=== PATIENT | male | born 1965 | race Caucasian/White ===

== ENCOUNTER 2017-06-05 21:09 | Emergency (ER) | payer OTHER ==
[2017-06-05 21:35] VITALS: RESP 14; O2SAT 99
--- NOTE | 2017-06-05 22:14 | C.PDOC ---
History Of Present Illness 52 year old male presents to the ER with a complaint of pain to the right lower back that radiates to the right buttock and right thigh for 1.5 months that worsens with ambulation. Denies weakness, numbness, dysuria, hematuria, or incontinence. Time Seen by Provider: 06/05/17 21:33 Chief Complaint (Nursing): Hip Pain History Per: Patient History/Exam Limitations: no limitations Onset/Duration Of Symptoms: Days Current Symptoms Are (Timing): Still Present Recent travel outside of the [place]: No Past Medical History Reviewed: Historical Data, Nursing Documentation, Vital Signs Vital Signs: Last Vital Signs Temp 97.8 F 06/05/17 22:19 Pulse 78 06/05/17 22:19 Resp 14 06/05/17 22:19 BP 118/78 06/05/17 22:19 Pulse Ox 99 06/05/17 22:19 Surgical History: No Surg Hx Family History: States: Unknown Family Hx - Social History Hx Alcohol Use: No Hx Substance Use: No - Immunization History Hx Tetanus Toxoid Vaccination: No Hx Influenza Vaccination: No Hx Pneumococcal Vaccination: No Review Of Systems Genitourinary: Negative for: Dysuria, Incontinence, Hematuria Musculoskeletal: Positive for: Back Pain (Right lower), Leg Pain (Right thigh), Other (Right buttock) Neurological: Negative for: Weakness, Numbness Physical Exam - Physical Exam Appears: Non-toxic Skin: Normal Color, Warm, Dry Head: Atraumatic, Normacephalic Eye(s): bilateral: Normal Inspection Back: No Vertebral Tenderness, Paraspinal Tenderness (Right lumbar) Extremity: No Deformity, No Swelling, Other (ROM of right leg causes pain.) Neurological/Psych: Oriented x3, Normal Speech, Normal Motor, Normal Sensation Gait: Steady ED Course And Treatment O2 Sat by Pulse Oximetry: 99 (Room air) Pulse Ox Interpretation: Normal Progress Note: Toradol and flexeril administered. Patient reports improvement of pain, he is ambulatory in the ER without any difficulty or pain; will discharge home with instructions to follow up with PMD or return if symptoms worsen. Disposition Counseled Patient/Family Regarding: Diagnosis, Need For Followup, Rx Given - Disposition Referrals: [facility] [Outside] Disposition: HOME/ ROUTINE Disposition Time: 22:11 Condition: STABLE Additional Instructions: Take meds as directed Follow up in clinic Return to ER if worse Prescriptions: Cyclobenzaprine [Cyclobenzaprine HCl] 10 mg PO HS #10 tab Ibuprofen [Motrin] 600 mg PO Q6H #24 tab Instructions: Sciatica Forms: [facility] (Estonian) - Clinical Impression Clinical Impression: Sciatica of right side - PA / PROGRAMMING ENGINEER / Resident Statement MD/DO has reviewed & agrees with the documentation as recorded. - Scribe Statement The provider has reviewed the documentation as recorded by the Scribjv Lepe All medical record entries made by the Benjaminibjv were at my direction and personally dictated by me. I have reviewed the chart and agree that the record accurately reflects my personal performance of the history, physical exam, medical decision making, and the department course for this patient. I have also personally directed, reviewed, and agree with the discharge instructions and disposition.
[2017-06-05 22:20] VITALS: BP 118/78; PULSE 78; TEMP 97.8
== END 2017-06-05 22:20 | disposition home or self-care (01) ==
LOC: C.ER 21:09
DX: M54.31 Sciatica, right side (principal)
CPT/HCPCS: 96372; 99283; J1885